=== PATIENT | female | born 1955 | race Caucasian/White ===

== ENCOUNTER 2021-07-24 14:49 | Emergency (ER) | payer MEDICARE, SELFPAY | END 2021-07-24 17:25 | disposition home or self-care (01) | LOC: CSHERS 14:49 | DX: K62.5 Hemorrhage of anus and rectum (principal); J44.9 Chronic obstructive pulmonary disease, unspecified; F17.210 Nicotine dependence, cigarettes, uncomplicated | CPT/HCPCS: 99283 ==